=== PATIENT | male | born 1965 | race Caucasian/White ===

== ENCOUNTER → 2017-06-13 | Outpatient (CLI) | payer OTHER ==
[~2017-06-13] MED LIST: ATEN100T PO; ATOR1TAB21 PO; GLIM2TAB PO; LEVO175T2 PO; LOSA100T5 PO; LOSA25TA8 PO; METF10004 PO; SPIR50TA2 PO; TRUL10IN SC
--- NOTE | 2017-06-13 15:18 | REP ---
Left varix lower extremity deep vein duplex ultrasound and left lower extremity venous ultrasound for reflux: Left lower extremity deep vein duplex ultrasound: The deep veins demonstrate normal compression, normal Doppler color flow and normal Doppler waveforms with respiration augmentation at multiple levels from the popliteal vein to the common femoral vein. Impression: There is no deep vein thrombus. Left lower extremity deep vein reflux evaluation: There is common femoral vein reflux. There is a reflux at the greater saphenous/femoral vein junction and at the greater saphenous vein at the mid thigh and the greater saphenous vein at the knee. There is no reflux in the proximal mid or distal femoral vein. However, there is popliteal vein reflux and there is lesser saphenous vein reflux. There are collaterals from the greater saphenous vein at the mid and distal levels and below the knee toward the ulcer. Reflux is identified within these collaterals. Signed by James Gonzalez MD 06/13/2017 03:09 P
== END ==
LOC: M RAD 12:44
PROVIDERS: ATTEND Surgery
DX: I87.313 Chronic venous hypertension (idiopathic) with ulcer of bilateral lower extremity (principal); L97.812 Non-pressure chronic ulcer of other part of right lower leg with fat layer exposed

== ENCOUNTER → 2017-06-14 | Outpatient (CLI) | payer OTHER ==
--- NOTE | 2017-06-14 15:20 | REP ---
Right lower extremity deep vein duplex ultrasound for thrombus and for reflux: Right lower extremity deep vein duplex ultrasound for thrombus: The deep veins demonstrate normal compression, normal Doppler color flow and normal Doppler waveforms with respiration augmentation at multiple levels. Impression: There is no deep vein thrombus. Right lower extremity deep vein evaluation for reflux: There is common femoral vein reflux. There is an anterior accessory greater saphenous vein demonstrating reflux. There is reflux at the greater saphenous vein/femoral vein junction. There is reflux in the mid greater saphenous vein. There is reflux in the greater saphenous vein at the knee. There is no femoral vein reflux. No popliteal vein reflux. There is significant reflux throughout the entire greater saphenous vein length with standing. There is reflux in the greater saphenous vein below the knee when the bed is tipped with filling from varicosities. There is no deep system reflux. There are multiple collaterals from the greater saphenous vein into the calf and lower calf toward the ankle. Signed by James Gonzalez MD 06/14/2017 03:11 P
== END ==
LOC: M RAD 13:08
PROVIDERS: ATTEND Surgery
DX: I87.313 Chronic venous hypertension (idiopathic) with ulcer of bilateral lower extremity (principal); L97.812 Non-pressure chronic ulcer of other part of right lower leg with fat layer exposed

== ENCOUNTER 2017-09-08 12:58 | Day surgery (SDC) | payer OTHER ==
[~2017-09-08] VITALS: Ht 175.3 cm; Wt 184.6 kg
[2017-09-08] MEDS ORDERED: PROPOFOL 200 MG/20 ML VIAL As Ordered ONE (13:53)
[2017-09-08] MEDS ORDERED: LIDOCAINE 2% INJ 100 MG/5 ML SDV (FOR ANES.) As Ordered ONE (13:53)
[2017-09-08] MEDS ORDERED: fentaNYL 100 MCG/2 ML INJECTION (J3010) As Ordered ONE (13:54)
[2017-09-08] MEDS ORDERED: MIDAZOLAM INJ 2 MG/2 ML VIAL (J2250) As Ordered ONE (13:54)
[2017-09-08] MEDS ORDERED: LIDOCAINE W/EPINEPHRINE 1% 20ML VIAL As Ordered ONE ×2 (14:37→14:39)
[2017-09-08] MEDS ORDERED: KETAMINE HCL 200 MG/20 ML VIAL As Ordered ONE (14:56)
[2017-09-08] MEDS ORDERED: LABETALOL HCL 100 MG/20 ML VIAL As Ordered ONE (15:01)
[2017-09-08] MEDS ORDERED: GLYCOPYRROLATE INJ 0.2 MG/ML 2 ML VIAL As Ordered ONE (15:02)
[2017-09-08] MEDS ORDERED: PERCOCET 5MG/325MG TAB PO PRN (16:15)
[2017-09-08] MEDS ORDERED: ONDANSETRON 4MG/2ML VIAL (J2405) IV PRN (16:15)
[2017-09-08] MEDS ORDERED: LR 1,000 ML IV SCH (16:15)
[2017-09-08 17:30] VITALS: BP 160/90
--- NOTE | 2017-09-16 13:43 | RO ---
DATE OF PROCEDURE: 09/08/2017 PREOPERATIVE DIAGNOSIS: Bilateral lower extremity venous and alveolar insufficiency with venous stasis ulcer. POSTOPERATIVE DIAGNOSIS: Bilateral lower extremity venous and alveolar insufficiency with venous stasis ulcer. PROCEDURE: Ultrasound guided left greater saphenous vein cannulation. Left greater saphenous vein radiofrequency ablation. SURGEON: Dr. Magaly Gibson CASE MANAGEMENT COORDINATOR: None. ANESTHESIA: Local, monitored anesthesia care (MAC). ESTIMATED BLOOD LOSS: 20 mL. IV FLUIDS: 750 mL. SPECIMEN: None. COMPLICATIONS: None. DRAINS: None. IMPLANTS: None. INDICATION: Patient is a 51-year-old male with nonhealing venous stasis ulcer on the left lower extremity who underwent ultrasound evaluation and was found to have greater saphenous vein valvular insufficiency in both lower extremities. The patient was evaluated and felt to be a good candidate for a left greater saphenous vein radiofrequency ablation due to his venous stasis ulcer and valvular insufficiency. The risks, benefits and alternative treatment options were discussed with the patient. DESCRIPTION OF PROCEDURE: The patient was taken to the operating room and placed supine on the operating room table and the left lower extremity was prepped and draped in a standard surgical fashion. A time out was then conducted confirming the correct procedure, patient and laterality. The ultrasound was then used to guide cannulation of the greater saphenous vein in the below knee region with real time concurrent imaging using ultrasound performed during the ultrasound guided cannulation with visualization of the entry of the needle into the greater saphenous vein. A hard copy image was preserved. The micropuncture wire was then advanced through the micropuncture needle which was up sized to a sheath. A catheter was then placed 2 cm distal to the saphenofemoral junction. The saphenous vein was then anesthetized with circumferential injection of tumescent solution around the saphenous vein from the saphenofemoral junction to the entry site in the below knee region. Radiofrequency ablation of the saphenous vein was then performed from 2 cm distal to the saphenofemoral junction down to the entry site in the below knee region, after which, the catheter wire and sheath were removed. Dressings were applied. The patient tolerated the procedure well. All instrument, sponge and needle counts were correct at the end of the case. There were no complications. Dr. Gibson was present for and directed the entire case. The patient was transferred to the recovery room awake, alert, extubated and in stable condition.
== END 2017-09-08 17:50 | disposition home or self-care (01) ==
LOC: M SDC 12:58
PROVIDERS: ATTEND Surgery Vascular Surgery
DX: I83.228 Varicose veins of left lower extremity with both ulcer of other part of lower extremity and inflammation (principal); I83.218 Varicose veins of right lower extremity with both ulcer of other part of lower extremity and inflammation; L97.829 Non-pressure chronic ulcer of other part of left lower leg with unspecified severity; L97.819 Non-pressure chronic ulcer of other part of right lower leg with unspecified severity; I25.10 Atherosclerotic heart disease of native coronary artery without angina pectoris; Z98.61 Coronary angioplasty status; Z79.4 Long term (current) use of insulin; E10.9 Type 1 diabetes mellitus without complications; Z88.8 Allergy status to other drugs, medicaments and biological substances; Z79.82 Long term (current) use of aspirin; Z79.899 Other long term (current) drug therapy

== ENCOUNTER → 2017-09-16 | Outpatient (CLI) | payer OTHER ==
--- NOTE | 2017-09-16 12:12 | REP ---
LEFT LOWER EXTREMITY DOPPLER VENOUS ULTRASOUND: 09/16/2017 CLINICAL HISTORY: Status post ablation superficial veins, left lower extremity. COMPARISON: 06/13/2017 TECHNIQUE: The deep venous system of the left lower extremity is evaluated with perez scale imaging, compression ultrasound, color imaging and duplex Doppler interrogation. Examination from the groin through the popliteal fossa into the proximal calf. FINDINGS: There is full compressibility from the common femoral vein in the inguinal region through the popliteal vein. Color imaging confirms patency throughout the course of the deep venous system. There is respiratory variation and augmented flow at all levels. The greater saphenous vein of the left lower extremity is clotted which would be expected after this procedure. No other findings. IMPRESSION: 1. No Doppler venous ultrasound evidence of DVT in the left lower extremity. Signed by Elias Martinez MD 09/16/2017 05:32 P
== END ==
LOC: M RAD 10:59
PROVIDERS: ATTEND Surgery Vascular Surgery
DX: I83.028 Varicose veins of left lower extremity with ulcer other part of lower leg (principal); Z98.890 Other specified postprocedural states

== ENCOUNTER 2018-08-24 13:28 | Outpatient (RCR) | payer OTHER | END 2018-09-06 | LOC: M PT 13:28 | DX: I89.0 Lymphedema, not elsewhere classified (principal) | CPT/HCPCS: 97140 ==

== ENCOUNTER 2018-09-01 09:01 | Day surgery (SDC) | payer OTHER ==
[2018-09-01] MEDS: NS 1,000 ML IV (10:32)
[2018-09-01] MEDS ORDERED: PROPOFOL 200 MG/20 ML VIAL As Ordered ×2 (11:42)
[2018-09-01] MEDS ORDERED: LIDOCAINE 2% INJ 100 MG/5 ML SDV (FOR ANES.) As Ordered (11:42)
== END 2018-09-01 12:33 | disposition home or self-care (01) ==
LOC: M OPP 09:01
DX: Z12.11 Encounter for screening for malignant neoplasm of colon (principal); K64.8 Other hemorrhoids; K29.70 Gastritis, unspecified, without bleeding; E11.9 Type 2 diabetes mellitus without complications; I10 Essential (primary) hypertension; E78.5 Hyperlipidemia, unspecified; E03.9 Hypothyroidism, unspecified; K74.60 Unspecified cirrhosis of liver; K21.9 Gastro-esophageal reflux disease without esophagitis; G47.30 Sleep apnea, unspecified; I87.313 Chronic venous hypertension (idiopathic) with ulcer of bilateral lower extremity; Z79.899 Other long term (current) drug therapy; Z79.84 Long term (current) use of oral hypoglycemic drugs; Z88.8 Allergy status to other drugs, medicaments and biological substances
CPT/HCPCS: 45378

== ENCOUNTER 2018-09-07 13:57 | Outpatient (RCR) | payer OTHER | END 2018-10-06 | LOC: M PT 09-12 14:39 | DX: I89.0 Lymphedema, not elsewhere classified (principal) | CPT/HCPCS: 97140 ==

== ENCOUNTER 2018-10-23 14:12 | Outpatient (RCR) | payer OTHER ==
[~2018-10-23 14:12] MED LIST changes: +LEVO200T4 PO; +LOSA25TA14 PO; -LOSA25TA8 PO; +POTA10TA14 PO; -SPIR50TA2 PO; +SPIR50TA4 PO; +[UNRECOGNIZED DRUG - CODE] PO
== END 2018-11-06 ==
LOC: M PT 14:12
PROVIDERS: ATTEND Surgery
DX: I89.0 Lymphedema, not elsewhere classified (principal)

== ENCOUNTER 2018-11-13 09:15 | Outpatient (RCR) | payer OTHER | END 2018-12-07 | LOC: M PT 09:15 | PROVIDERS: ATTEND Surgery | DX: I89.0 Lymphedema, not elsewhere classified (principal) ==

== ENCOUNTER 2019-01-02 13:30 | Outpatient (RCR) | payer OTHER | END 2019-01-04 | LOC: M PT 13:30 | PROVIDERS: ATTEND Surgery | DX: I89.0 Lymphedema, not elsewhere classified (principal) ==

== ENCOUNTER 2019-01-16 14:15 | Outpatient (RCR) | payer OTHER | END 2019-02-04 | LOC: M PT 14:15 | PROVIDERS: ATTEND Surgery | DX: I87.312 Chronic venous hypertension (idiopathic) with ulcer of left lower extremity (principal); I89.0 Lymphedema, not elsewhere classified ==